=== PATIENT | female | born 1975 ===

== ENCOUNTER 2024-11-11 05:19 | Day surgery (SDC) | payer OTHER ==
[2024-11-03 08:38] LABS: BASO % 0.6 % (0.1-1.2); EOS # 0.18 (0.04-0.54); EOS % 3.7 % (0.7-7.0); LYMPH # 1.34 (1.18-3.74); LYMPH % 27.7 % (19.3-53.1); MEAN PLATELET VOLUME 10.30 fl (9.4-12.4); MONO # 0.37 (0.24-0.82); MONO % 7.6 % (4.7-12.5); NEUT # 2.91 (1.56-6.13); NEUT % 60.2 % (34.0-71.1); RED CELL DISTRIBUTION WIDTH 13.8 % (11.6-14.4)
[2024-11-03 08:43] LABS: URINE APPEARANCE Clear; URINE BILIRRUBIN Negative (NEGATIVE); URINE BLOOD Large; URINE COLOR Yellow; URINE GLUCOSE Negative (NEGATIVE); URINE KETONE Negative (NEGATIVE); URINE LEUKOCYTE Negative; URINE NITRATE Negative; URINE PROTEIN Negative (NEGATIVE); URINE UROBILINOGEN 0.2 E.U./dl
[2024-11-03 08:46] VITALS: BP 125/64
[2024-11-03 08:48] LABS: URINE BACTERIA 32.3 uL (0.0-1933); URINE EPITHELIAL CELLS 6.9 uL (0.0-38.8); URINE RBC 723.2 uL (0.0-20.8); URINE WBC 4.4 uL (0.0-23.2)
[2024-11-03 09:04] LABS: INR 1.0
[2024-11-03 09:47] LABS: URINE CAST 0.14 uL (0.0-1.40)
[2024-11-03 10:20] LABS: ALT/SGPT 24.0 U/L (12-78); AST/SGOT 16.0 U/L (15-37); BILIRUBIN TOTAL 0.38 mg/dL (0.3-1.2); BUN CREA RATIO 19.0 (7.0-25.0); CREATININE SERUM 0.74 mg/dL (0.55-1.02); GFR 84.12; GLOBULINA 2.9 G/DL (2.4-3.5); GLUCOSE FASTING 98.0 mg/dL (65-100); OSMOLALITY SERUM 284.0 MOSM/KG (275-295); TSH 1.36 uIU/mL (0.358-3.74)
[~2024-11-11] VITALS: Ht 160 cm; Wt 77.1 kg
[~2024-11-11 05:19] MED LIST: BIOTIN1 M1 PO; LIPOFEN150 MG PO; MIRALAX17 GM PO; PROBIOTIC1 EAC4 PO
[2024-11-11] MEDS ORDERED: SUGAMMADEX SODIUM 200 MG/2 ML VIAL IV ONE ×2 (12:46→14:30)
[2024-11-11] MEDS ORDERED: MORPHINE SULFATE 4 MG/ML VIAL IV PRN (13:15)
[2024-11-11] MEDS ORDERED: PROMETHAZINE HCL 50 MG/ML AMPUL IM ONE (13:15)
[2024-11-11] MEDS ORDERED: NAPR500T14 PO (13:17)
[2024-11-11] MEDS ORDERED: Tylenol #3 PO (13:17)
[2024-11-11] MEDS ORDERED: MORPHINE SULFATE 4 MG/ML VIAL IV ONE ×2 (13:45→14:15)
[2024-11-11] MEDS ORDERED: POVIDONE-IODINE 118 ML BOTT TOP ONE (14:30)
== END 2024-11-11 15:05 | disposition home or self-care (01) ==
LOC: CIR.AMB 05:19
PROVIDERS: ATTEND Obstetrics & Gynecology
DX: D27.0 Benign neoplasm of right ovary (principal); N83.01 Follicular cyst of right ovary